=== PATIENT | female | born 1990 | race Hispanic/Latino ===

== ENCOUNTER 2016-09-25 01:52 | Emergency (ER) | payer OTHER ==
[2016-09-25 02:19] VITALS: RESP 16
--- NOTE | 2016-09-25 02:41 | ED PDOC ---
Lower Extremity Pain/Injury Time Seen by Provider: 09/25/16 02:16 Chief Complaint (Nursing): Lower Extremity Problem/Injury Chief Complaint (Provider): right foot pain History Per: Patient History/Exam Limitations: no limitations Onset/Duration Of Symptoms: Hrs Current Symptoms Are (Timing): Still Present Additional History Per: Patient Additional Complaint(s): 25 y/o female presents for eval of right foot and ankle pain x 2 hours. Patient states she played indoor soccer last night for the first time in a while , and woke up from her sleep shortly after with pain to top of foot and ankle. Denies numbness/weakness right upper extremity, limitation of movement. Past Medical History Reviewed: Historical Data, Nursing Documentation, Vital Signs Vital Signs: Last Vital Signs Temp 98.0 F 09/25/16 02:02 Pulse 89 09/25/16 02:02 Resp 16 09/25/16 02:02 BP 125/85 09/25/16 02:02 Pulse Ox 99 09/25/16 02:02 - Medical History PMH: Asthma - Surgical History Surgical History: Appendectomy - Family History Family History: States: Unknown Family Hx - Home Medications Home Medications: Ambulatory Orders Medication Instructions Recorded Ibuprofen [Motrin Tab] 1 tab PO Q6 PRN #20 tab 09/25/16 - Allergies Allergies/Adverse Reactions: Allergies Allergy/AdvReac Type Severity Reaction Status Date / Time azithromycin Allergy Mild RASH Verified 09/25/16 02:19 Review of Systems ROS Statement: Except As Marked, All Systems Reviewed And Found Negative Musculoskeletal: Positive for: Foot Pain (right) Physical Exam - Reviewed Nursing Documentation Reviewed: Yes Vital Signs Reviewed: Yes - Physical Exam Appears: Positive for: Well, Non-toxic, No Acute Distress Head Exam: Positive for: ATRAUMATIC, NORMAL INSPECTION, NORMOCEPHALIC Pulses-Dorsalis Pedis (L): 2+ Pulses-Dorsalis Pedis (R): 2+ Pulses-Post. Tibialis (L): 2+ Pulses-Post. Tibialis (R): 2+ Extremity: Positive for: Normal ROM, Tenderness (dorsal proximal right foot without swelling, deformity. Tender lateral malleolus without swelling, deformity) Neurologic/Psych: Positive for: Alert, Oriented. Negative for: Motor/Sensory Deficits - ECG O2 Sat by Pulse Oximetry: 99 - Other Rad xray right foot X-Ray: Viewed By Vt X-Ray Interpretation: no acute findings; + osteophytes adjacent to cuboid xray right ankle X-Ray: Viewed By Me X-Ray Interpretation: no acute findings - Progress ED Course And Treament: xrays, ibuprofen Patient educated on findings, foot wrapped in BETY compression, surgical shoe given. ADvised RICE. Rx ibuprofen provided. Follow up podiatry for persistent symptoms. Return to ED for worsening/concerning symptoms. Disposition - Clinical Impression Clinical Impression: Ankle pain, Foot pain - Disposition Referrals: Julisa Phoenix DPM [Staff Provider] - [facility]ry [facility] [Outside] Disposition Time: 04:11 Condition: STABLE Prescriptions: Ibuprofen [Motrin Tab] 1 tab PO Q6 PRN #20 tab PRN Reason: Pain, Moderate (4-7) Instructions: Foot Sprain (ED), Arthralgia (ED), RICE Therapy (ED)
[2016-09-25 04:29] VITALS: BP 118/65; PULSE 81; TEMP 98.2; O2SAT 100
--- NOTE | 2016-09-25 11:12 | RAD ---
PROCEDURE: Right Ankle Radiographs. HISTORY: pain COMPARISON: None FINDINGS: BONES: Normal. No fracture. JOINTS: Normal. No osteoarthritis. Ankle mortise maintained. Talar dome intact SOFT TISSUES: Normal. OTHER FINDINGS: None. IMPRESSION: Normal right ankle radiographs.
--- NOTE | 2016-09-25 11:13 | RAD ---
PROCEDURE: Right Foot Radiographs. HISTORY: diffuse proximal metatarsal pain COMPARISON: None. FINDINGS: BONES: Normal. No fracture. JOINTS: Normal. SOFT TISSUES: Normal. OTHER FINDINGS: None. IMPRESSION: Normal right foot radiographs.
== END 2016-09-25 04:16 | disposition home or self-care (01) ==
LOC: H.ER 01:52
DX: M25.571 Pain in right ankle and joints of right foot (principal)